=== PATIENT | male | born 1995 | race Hispanic/Latino ===

== ENCOUNTER 2020-03-18 12:31 | Emergency (ER) | payer SELFPAY ==
[2020-03-18] MEDS ORDERED: Ibuprofen 800 MG TAB ONE (13:29)
== END 2020-03-18 13:40 | disposition home or self-care (01) ==
LOC: BURERS 12:31
DX: S76.211A Strain of adductor muscle, fascia and tendon of right thigh, initial encounter (principal); X50.9XXA Other and unspecified overexertion or strenuous movements or postures, initial encounter
CPT/HCPCS: 99283